=== PATIENT | male | born 1980 | race Caucasian/White ===

== ENCOUNTER 2017-11-06 09:42 | Emergency (ER) | payer SELFPAY ==
[2017-11-06 10:02] VITALS: BP 155/99
--- NOTE | 2017-11-06 10:18 | EDM.PDOC ---
ED HPI GENERAL MEDICAL PROBLEM - General Chief Complaint: Back Pain or Injury Stated Complaint: BACK PAIN Time Seen by Provider: 11/06/17 10:17 Source of Information: Reports: Patient History Limitations: Reports: No Limitations - History of Present Illness INITIAL COMMENTS - FREE TEXT/NARRATIVE: 37-year-old male presents to the ED with diffuse low back pain which he claims is bilateral. States been present off and on for the last 2-3 weeks. It is usually just a deep dull aching discomfort which is worsened with certain movements such as twisting or turning especially Repetitive movements to the left or right. States that he becomes quite sharp and stabbing. It does not radiate up or down the spine. He has no falls or recent injuries. States at times it does hurt to take a deep breath. Denies cough or sputum production. 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 Onset: Gradual Duration: Week(s): (Pain off and on for at least the last 3 weeks.) Location: Reports: Back (Mid lower back. 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 However he states the roads are very bad condition is back receives excessive jarring movement and up-and-down fashion due to the holes in the road at this time.). Denies: Activity, Exercise, Lifting, Sick Contact, Trauma Associated Symptoms: Reports: Other (Pain in the lower back can be made worse by deep breath..). Denies: Confusion, Chest Pain, Cough, cough w sputum, Diaphoresis, Fever/Chills, Headaches, Loss of Appetite, Malaise, Syncope Treatments LANGUAGE PATH: Reports: NSAIDS (Ibuprofen primarily) - Related Data Allergies Allergy/AdvReac Type Severity Reaction Status Date / Time morphine Allergy Intermediate Hives Verified 11/06/17 09:55 Home Meds: Home Meds Diclofenac Sodium [Voltaren] 50 mg PO TID #30 tab.ec 11/06/17 [Rx] Past Medical History - Past Health History Medical/Surgical History: Denies Medical/Surgical History HEENT History: Reports: Sinusitis, Other (See Below) Other HEENT History: deviated septum Cardiovascular History: Reports: None Respiratory History: Reports: None Gastrointestinal History: Reports: None Genitourinary History: Reports: None Musculoskeletal History: Reports: None Neurological History: Reports: None Psychiatric History: Reports: None Endocrine/Metabolic History: Reports: None Hematologic History: Reports: None Oncologic (Cancer) History: Reports: None Dermatologic History: Reports: None - Infectious Disease History Infectious Disease History: Reports: Chicken Pox - Past Surgical History HEENT Surgical History: Reports: Eye Surgery Respiratory Surgical History: Reports: None GI Surgical History: Reports: None Social & Family History - Family History HEENT: Reports: None Cardiac: Reports: None Endocrine/Metabolic: Reports: Diabetes, type II - Tobacco Use Smoking Status *Q: Never Smoker Second Hand Smoke Exposure: No - Caffeine Use Caffeine Use: Reports: Coffee - Recreational Drug Use Recreational Drug Use: No - Living Situation & Occupation Living situation: Reports: Single Occupation: Employed ED ROS GENERAL - Review of Systems Review Of Systems: See Below Constitutional: Denies: Fever, Chills, Malaise, Weakness, Fatigue, Decreased Appetite, Weight Loss HEENT: Reports: No Symptoms Respiratory: Reports: No Symptoms Cardiovascular: Reports: No Symptoms Endocrine: Reports: No Symptoms GI/Abdominal: Denies: Abdominal Pain, Anorexia, Black Stool, Bloody Stool, Constipation, Diarrhea, Decreased Appetite, Difficulty Swallowing, Distension, Flatus, Hematemesis, Hematochezia, Melena, Nausea, Stool Incontinence, Vomiting , Other : Reports: No Symptoms Musculoskeletal: Reports: Back Pain (See history of present illness is primarily mid low back pain from thoracic 6 to thoracic 12 on the right side versus the left.) Skin: Reports: No Symptoms Neurological: Reports: No Symptoms Psychiatric: Reports: No Symptoms ED EXAM, UPPER BACK/NECK PAIN - Physical Exam Exam: See Below Exam Limited By: No Limitations General Appearance: Alert, WD/WN, Mild Distress Eye Exam: Bilateral Eye: Normal Inspection Cardiovascular/Respiratory: Regular Rate, Rhythm, No M/R/G GI/Abdominal: Normal Bowel Sounds, Soft, Non-Tender, No Organomegaly, No Abnormal Bruit, No Mass, Pelvis Stable Back Exam: Muscle Spasm (Paraspinal muscle spasm T6-L1 on the right side. This is much worse on the left side. Pain seems to radiate along the lower 12th rib and involves the quadrigeminal muscles on the right side. He feels those this out to the posterior axillary line.), Paraspinal Tenderness. No: Vertebral Tenderness (Marked on the right side as compared to the left), Other Extremities: Normal Inspection, Normal Range of Motion, Non-Tender, No Pedal Edema Neurologic: No Motor/Sensory Deficits, Alert, Normal Mood/Affect, Oriented x 3 Psychiatric: Normal Affect, Normal Mood Skin Exam: Normal Color, Warm/Dry Course - Vital Signs Last Recorded V/S: Last Vital Signs Temp 36.2 C 11/06/17 09:57 Pulse 66 11/06/17 09:57 Resp 12 11/06/17 09:57 BP 155/99 H 11/06/17 09:57 Pulse Ox 100 11/06/17 09:57 - Orders/Labs/Meds Orders: Active Orders 24 hr Category Date Time Status Thoracic Spine 2V [CR] Stat Exams 11/06/17 10:22 Taken - Radiology Interpretation Free Text/Narrative:: 37-year-old male presents to the ED with persistent diffuse low back pain he feels is bilaterally but worse on the right side particularly along the lower right 12th rib and musculature to the right posterior axillary line. There is marked paraspinal muscle spasm from thoracic 6 to L1 on the right side. Suspect mechanical problems likely related to his work. Plan due to the prolonged nature of his pain however I'm going to have an AP lateral of his thoracic spine carried out. - Re-Assessments/Exams Free Text/Narrative Re-Assessment/Exam: 11/06/17 1112: X-rays of the thoracic spine are within normal limits showing no bony abnormalities or visualized portion of the ribs appear to be intact. Is most likely he has an underlying subtle subluxed rib either 10/11 or 12th on the right side to cause the significant muscle spasm on the side. Therefore going to advise chiropractic manipulation when he can get to 1. In the meantime I will place him on Voltaren 50 mg 3 times daily for the next 10 days to relieve pain and inflammation. Departure - Departure Time of Disposition: 11:17 Disposition: Home, Self-Care 01 Condition: Fair Clinical Impression: Repetitive strain injury of thoracic spine - Discharge Information Prescriptions: Diclofenac Sodium [Voltaren] 50 mg PO TID #30 tab.ec Instructions: Thoracic Strain, [id number] Referrals: PCP,None [Primary Care Provider] - Forms: ED Department Discharge Additional Instructions: Evaluation in the emergency room today in regards to intermittent persistent mid back pain for the last 2-3 weeks. No known injuries. Examination reveals marked paraspinal muscle spasm on the right side from thoracic 5 to lumbar 1 vertebra. There is likely an underlying rib head subluxation or partial dislocation of her rib head causing this pain. X-rays of the thoracic spine were carried out due to the chronicity of your pain but no abnormalities were identified in the thoracic spine or visualized portions of the ribs. I'm going to treat you with anti-inflammatory Voltaren 50 mg 3 times daily to relieve pain and inflammation over the next few days. However I would strongly encourage you to seek out chiropractic manipulation of her mid low back to have rib heads replaced back into normal position is a think long-term he will get better results. I would suggest follow-up with Dr. Steve Chan's office is located at [address] [place] [address] phone number to arrange an appointment is [phone]. - My Orders Last 24 Hours: My Active Orders 11/06/17 10:22 Thoracic Spine 2V [CR] Stat - Assessment/Plan Last 24 Hours: My Active Orders 11/06/17 10:22 Thoracic Spine 2V [CR] Stat
--- NOTE | 2017-11-06 18:18 | CR ---
Thoracic spine: AP, lateral and swimmer's views of the thoracic spine were obtained. Comparison: No previous study. Slight disc space narrowing is noted within the mid and upper thoracic spine. Vertebral body heights are maintained. Pedicles are intact. Minimal endplate osteophytes are seen laterally within the lower thoracic spine. Impression: 1. Minimal degenerative change. Diagnostic code #2
== END 2017-11-06 11:40 | disposition home or self-care (01) ==
LOC: JD.ED 09:42
DX: S29.012A Strain of muscle and tendon of back wall of thorax, initial encounter (principal); Z88.5 Allergy status to narcotic agent; X50.3XXA Overexertion from repetitive movements, initial encounter
CPT/HCPCS: 72070; 72070-26; 99283

== ENCOUNTER 2020-02-07 09:58 | Emergency (ER) | payer OTHER ==
[2020-02-07 10:10] VITALS: BP 146/108; PULSE 86
--- NOTE | 2020-02-07 10:23 | EDM.PDOC ---
ED HPI GENERAL MEDICAL PROBLEM - General Chief Complaint: ENT Problem Stated Complaint: DENTAL COMPLAINT Time Seen by Provider: 02/07/20 10:20 Source of Information: Reports: Patient History Limitations: Reports: No Limitations - History of Present Illness INITIAL COMMENTS - FREE TEXT/NARRATIVE: 39-year-old male presents to the ED with dental pain coming from both his upper and lower right second molar teeth. He has had previous wisdom tooth extractions. He states the teeth are badly decayed and broken off and has had an infection in the upper tooth once before. He just got insurance and is on his way to seeking dental care and management as these teeth will need to be extracted. Current pain and swelling started in the right upper second molar tooth 2 days ago. Did not sleep at all last night due to the constant throbbing pain in lancinating pain up to board his right temporal scalp suggesting neurogenic pain. No fever or chills. No significant facial swelling. Unable to eat or chew much. Has been taking Aleve and initially it did seem to help somewhat but did not help at all last night. Onset: Gradual Onset Date: 02/05/20 Duration: Day(s):, Getting Worse Location: Reports: Head ( lancinating chest and shoots up towards the right temporal scalp.), Face (Toe pain right upper second molar tooth. Pain) Quality: Reports: Ache, Sharp (Lancinating at times.), Stabbing, Throbbing Severity: Moderate Improves with: Reports: Medication (Aleve helped a little bit yesterday not today at all.) Worsens with: Reports: Other (Tempted to and also sensitive to heat and cold.) Context: Reports: Other (Has badly decayed molar teeth.). Denies: Activity, Exercise, Lifting, Sick Contact, Trauma Associated Symptoms: Reports: No Other Symptoms, Loss of Appetite, Malaise. 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: NSAIDS (Leave primarily) Right Upper Tooth/Teeth Pain Score (Numeric/FACES): 7 - Related Data Allergies Allergy/AdvReac Type Severity Reaction Status Date / Time morphine Allergy Severe Hives Verified 02/07/20 10:10 Sulfa (Sulfonamide Allergy Severe Hives Verified 02/07/20 10:10 Antibiotics) Home Meds: Home Meds Amoxicillin/Potassium Clav [Augmentin 500-125 Tablet] 1 each PO BID #20 tablet 02/07/20 [Rx] oxyCODONE HCl/Acetaminophen [Percocet 5-325 mg Tablet] 1 - 2 each PO Q4H PRN #15 tablet 02/07/20 [Rx] Past Medical History - Past Health History Medical/Surgical History: Denies Medical/Surgical History HEENT History: Reports: Sinusitis, Other (See Below) Other HEENT History: deviated septum Cardiovascular History: Reports: None Respiratory History: Reports: None Gastrointestinal History: Reports: None Genitourinary History: Reports: None Musculoskeletal History: Reports: Arthritis Neurological History: Reports: None Psychiatric History: Reports: None Endocrine/Metabolic History: Reports: Obesity/BMI 30+ Hematologic History: Reports: None Immunologic History: Reports: None Oncologic (Cancer) History: Reports: None Dermatologic History: Reports: None - Infectious Disease History Infectious Disease History: Reports: None - Past Surgical History HEENT Surgical History: Reports: Eye Surgery, Naso-Sinus Surgery Social & Family History - Family History HEENT: Reports: None Cardiac: Reports: None Endocrine/Metabolic: Reports: Diabetes, type II - Tobacco Use Smoking Status *Q: Never Smoker - Caffeine Use Caffeine Use: Reports: Coffee - Recreational Drug Use Recreational Drug Use: No - Living Situation & Occupation Living situation: Reports: Single Occupation: Employed ED ROS ENT - Review of Systems Review Of Systems: See Below Constitutional: Reports: Malaise, Fatigue, Decreased Appetite. Denies: Fever, Chills HEENT: Reports: Dental Pain (Right upper second molar tooth as well as some pain from the right lower), Ear Pain ( second molar tooth which is badly decayed as well. Is referred to his right ear), Other Respiratory: Reports: No Symptoms (And is referred up to into the right temporal scalp.) Cardiovascular: Reports: No Symptoms Endocrine: Reports: No Symptoms GI/Abdominal: Reports: Decreased Appetite : Reports: No Symptoms Musculoskeletal: Reports: No Symptoms Skin: Reports: No Symptoms Neurological: Reports: No Symptoms Psychiatric: Reports: No Symptoms Hematologic/Lymphatic: Reports: No Symptoms Immunologic: Reports: No Symptoms ED EXAM, ENT - Physical Exam Exam: See Below Exam Limited By: No Limitations General Appearance: Alert, WD/WN, Mild Distress, Other (Temperature is 36.1. Pulse ox 86% room air respiratory to 16 BP is 146 108. He is advised to keep an eye on his blood pressure. Likely elevated due to pain today. Pulse ox is 96% on room air.) Eye Exam: Bilateral Eye: Normal Inspection, PERRL Ears: Normal TMs Mouth/Throat: Dental Abcess (Patient has a dental abscess right upper second molar tooth which is very badly decayed with 75% of the tooth decayed. The surrounding gingiva is markedly swollen and erythematous without any abscess to open. He is also having some pain with the right lower second molar tooth which is badly decayed and broken off even with the gingiva margin. Both are very tender to touch with the tongue blade.), Dental Pain, Dental Tenderness (Upper and lower right second molar teeth.) Head: Atraumatic, Normocephalic, Other (No significant swelling of the face or submandibular area.) Neck: Normal Inspection, Supple, Non-Tender. No: Lymphadenopathy (L), Lymphadenopathy (R) Respiratory/Chest: No Respiratory Distress, Lungs Clear, Normal Breath Sounds, No Accessory Muscle Use, Chest Non-Tender Cardiovascular: Normal Peripheral Pulses, Regular Rate, Rhythm, No Edema, No Gallop, No Murmur, No Rub Course - Vital Signs Last Recorded V/S: Last Vital Signs Temp 36.1 C 02/07/20 10:07 Pulse 86 02/07/20 10:07 Resp 16 02/07/20 10:07 BP 146/108 H 02/07/20 10:07 Pulse Ox 96 02/07/20 10:07 - Radiology Interpretation Free Text/Narrative:: 39-year-old male presents to the ED with dental pain primarily coming from an abscess right upper both upper and lower second molar teeth are badly decayed an d currently pain is coming from an abscess of the right upper molar tooth. Treated with Augmentin 500/125 mg tablet 1 tablet twice daily for the next 10 days. Continue Aleve 2 tablets every 8 hours to reduce pain and inflammation. Percocet tabs 5/325 mg 1 or 2 every 4-6 hours as needed for pain relief. 15 tablets provided for pain relief. He will seek dental care as soon as able. His teeth will have to be removed. Departure - Departure Time of Disposition: 10:20 Disposition: Home, Self-Care 01 Condition: Fair Clinical Impression: Dental abscess - Discharge Information *PRESCRIPTION DRUG MONITORING PROGRAM REVIEWED*: Not Applicable *COPY OF PRESCRIPTION DRUG MONITORING REPORT IN PATIENT GUNJAN: Not Applicable Prescriptions: Amoxicillin/Potassium Clav [Augmentin 500-125 Tablet] 1 each PO BID #20 tablet oxyCODONE HCl/Acetaminophen [Percocet 5-325 mg Tablet] 1 - 2 each PO Q4H PRN #15 tablet PRN Reason: pain relief. Instructions: Dental Abscess, [id number] Referrals: PCP,None [Primary Care Provider] - Forms: ED Department Discharge, ED Return to Work/School Form Additional Instructions: Evaluation in the emergency room today in regards to dental pain coming from both the right lower second molar tooth which is broken off even with the gi ngiva margin but the primary infection is coming from a very badly decayed right upper second molar tooth. The surrounding gingiva are swollen. Treatment is antibiotic Augmentin 500/125 mg tablet twice daily for the next 10 days to clear up infection. This medicine unfortunately likes to cause some degree of diarrhea. Suggest yogurt once daily which will usually prevent diarrhea from occurring. Continue either Aleve 2 tablets every 8 hours or Motrin 600 mg every 6 hours to relieve pain and inflammation. Percocet tabs 5/325 mg 1 or 2 every 4-6 hours as needed for pain relief until the antibiotics become effective. Follow-up with dentist as soon as able to have the teeth extracted. Sepsis Event Note (ED) - Evaluation Sepsis Screening Result: No Definite Risk - Focused Exam Vital Signs: Vital Signs Temp Pulse Resp BP Pulse Ox 02/07/20 10:07 36.1 C 86 16 146/108 H 96
== END 2020-02-07 10:32 | disposition home or self-care (01) ==
LOC: JD.ED 09:58
DX: K04.7 Periapical abscess without sinus (principal); K02.9 Dental caries, unspecified; E66.9 Obesity, unspecified; Z68.30 Body mass index [BMI] 30.0-30.9, adult; Z88.5 Allergy status to narcotic agent; Z88.2 Allergy status to sulfonamides
CPT/HCPCS: 99282; 99283

== ENCOUNTER 2020-03-29 11:40 | Emergency (ER) | payer OTHER ==
--- NOTE | 2020-03-29 12:11 | EDM.PDOC ---
ED HPI GENERAL MEDICAL PROBLEM - General Chief Complaint: Chest Pain Stated Complaint: CHEST PAIN Time Seen by Provider: 03/29/20 12:00 Source of Information: Reports: Patient History Limitations: Reports: No Limitations - History of Present Illness INITIAL COMMENTS - FREE TEXT/NARRATIVE: 39-year-old male attends the ED complaining of diffuse left anterior chest wall pain since about 0730 hrs. this morning. He states it started shortly after he got up for the day when he was taking his daughter to school. He states it is constant and worsened by certain activities such as moving his left arm and perhaps deep breathing. No true pleuritic component to the pain. He states he has a history of heartburn but this pain does not feel burning in etiology. He has had a similar event a few years ago at a different hospital. Denies burping belching or any odynophagia. He swallowed water no problem this morning. He has not yet eaten. He is currently on no medications. He used to smoke cigarettes but quit several years ago. He has a strong family history of diabetes with his father succumbing to this illness 2 weeks ago. He believes his father may have had coronary disease and required stents but he is not sure. Apparently his grandfather does have diabetes. 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 Denies fever chills cough or sputum production. Onset: Today, Sudden Onset Date: 03/29/20 Onset Time: 07:30 Duration: Hour(s):, Constant Location: Reports: Chest (Left precordial chest.) Quality: Reports: Ache Severity: Moderate Improves with: Reports: None Worsens with: Reports: Movement Associated Symptoms: Denies: No Other Symptoms (Movements and deep breathing seem to make it a little bit worse.), Confusion, Chest Pain, Cough, cough w sputum, Diaphoresis, Fever/Chills, Headaches, Malaise, Nausea/Vomiting, Rash, Seizure, Shortness of Breath, Syncope, Weakness Treatments [employer]EL[employer]: Reports: Other (see below) (None.) Left Middle Chest Pain Score (Numeric/FACES): 6 - Related Data Allergies Allergy/AdvReac Type Severity Reaction Status Date / Time morphine Allergy Severe Hives Verified 03/29/20 11:56 Sulfa (Sulfonamide Allergy Severe Hives Verified 03/29/20 11:56 Antibiotics) Home Meds: Home Meds . [No Known Home Meds] 03/29/20 [History] Past Medical History - Past Health History Medical/Surgical History: Denies Medical/Surgical History HEENT History: Reports: Sinusitis, Other (See Below) Other HEENT History: deviated septum Cardiovascular History: Reports: None Respiratory History: Reports: None Gastrointestinal History: Reports: None Genitourinary History: Reports: None Musculoskeletal History: Reports: Arthritis Neurological History: Reports: None Psychiatric History: Reports: None Endocrine/Metabolic History: Reports: Obesity/BMI 30+ Hematologic History: Reports: None Immunologic History: Reports: None Oncologic (Cancer) History: Reports: None Dermatologic History: Reports: None - Infectious Disease History Infectious Disease History: Reports: None - Past Surgical History HEENT Surgical History: Reports: Eye Surgery, Naso-Sinus Surgery Social & Family History - Family History HEENT: Reports: None Cardiac: Reports: None Endocrine/Metabolic: Reports: Diabetes, type II - Caffeine Use Caffeine Use: Reports: Coffee - Living Situation & Occupation Living situation: Reports: Single Occupation: Employed ED ROS GENERAL - Review of Systems Review Of Systems: See Below Constitutional: Denies: Fever, Chills, Malaise, Weakness, Decreased Appetite, Weight Loss HEENT: Reports: No Symptoms Respiratory: Denies: Shortness of Breath, Wheezing, Pleuritic Chest Pain, Cough Cardiovascular: Reports: Chest Pain (See history of present illness.). Denies: Blood Pressure Problem (Although his blood pressure is elevated at the time he presented to the ED.) Endocrine: Reports: No Symptoms GI/Abdominal: Reports: Other (Prone to heartburn but he states this does not feel burning in intensity.) : Reports: No Symptoms Musculoskeletal: Reports: No Symptoms Skin: Reports: No Symptoms Neurological: Reports: No Symptoms Psychiatric: Reports: No Symptoms Hematologic/Lymphatic: Reports: No Symptoms Immunologic: Reports: No Symptoms ED EXAM, GENERAL - Physical Exam Exam: See Below Exam Limited By: No Limitations General Appearance: Alert, WD/WN, Anxious, Mild Distress, Other (Temperature is 36.6 with a heart rate of 83 and sinus respiratory to 10/min O2 sats 99% on room air BP elevated 157 106.) Eye Exam: Bilateral Eye: Normal Inspection, PERRL Neck: Normal Inspection, Supple, Non-Tender, Full Range of Motion. No: Carotid Bruit, Lymphadenopathy (L), Lymphadenopathy (R) Respiratory/Chest: No Respiratory Distress, Lungs Clear, Normal Breath Sounds, No Accessory Muscle Use, Chest Non-Tender, Other (Patient has chest wall pain well localized to the third fourth and fifth ribs in the midclavicular line on the left side. The fourth rib is much more tender than the other 2. This tenderness follows along the ribs laterally to the mid axillary line. It is worsened by moving his arm backwards when he stretches out his chest wall and pectoralis major and minor musculature.) Cardiovascular: Normal Peripheral Pulses, Regular Rate, Rhythm, No Edema, No Gallop, No Murmur, No Rub Peripheral Pulses: 3+: Carotid (L), Carotid (R), Posterior Tibial (L), Posterior Tibial (R), Dorsalis Pedis (L), Dorsalis Pedis (R) GI/Abdominal: Normal Bowel Sounds, Soft, Non-Tender, No Organomegaly, No Mass, Other Back Exam: Normal Inspection, Full Range of Motion. No: CVA Tenderness (L) Extremities: Normal Inspection, Normal Range of Motion, Non-Tender, No Pedal Edema Neurological: Alert, Oriented, CN II-XII Intact, Normal Cognition, Normal Gait Psychiatric: Normal Affect, Normal Mood, Anxious (Minimally anxious.) Skin Exam: Warm, Dry, Intact, Normal Color, No Rash EKG INTERPRETATION EKG Date: 03/29/20 Time: 11:50 Rhythm: NSR Rate (Beats/Min): 82 [place]aver[place]: LAD-Left Waverly Deviation (Minimal left axis deviation at -3 degrees.) P-Wave: Present QRS: RBBB (Patient has a right bundle branch block pattern) ST-T: Other (Baseline wander is in several leads. There is a diffuse early repolarization pattern but no signs of ischemia.) QT: Prolonged (QTC is mildly prolonged.) EKG Interpretation Comments: Abnormal ECG. Course - Vital Signs Last Recorded V/S: Last Vital Signs Temp 36.6 C 03/29/20 11:49 Pulse 83 03/29/20 11:49 Resp 10 L 03/29/20 11:49 BP 157/106 H 03/29/20 11:49 Pulse Ox 99 03/29/20 11:49 - Orders/Labs/Meds Orders: Active Orders 24 hr Category Date Time Status Dextrose 5%-0.9% NaCl [Dextrose 5%-Normal Saline] 1,000 Med 03/29/20 12:15 Active ml IV ASDIRECTED Ketorolac [Toradol] Med 03/29/20 12:15 Active 30 mg IVPUSH ONETIME Medication Orders Dextrose/Sodium Chloride (Dextrose 5%-Normal Saline) 1,000 mls @ 150 mls/hr IV ASDIRECTED ASHLEY Last Admin: 03/29/20 12:27 Dose: 150 mls/hr Documented by: MAYCOL Ketorolac Tromethamine (Toradol) 30 mg IVPUSH ONETIME ASHLEY Last Admin: 03/29/20 12:27 Dose: 30 mg Documented by: MAYCOL Labs: Laboratory Tests 03/29/20 03/29/20 03/29/20 Range/Units 11:55 11:55 11:55 WBC 7.18 (4.23-9.07) K/mm3 RBC 5.44 (4.63-6.08) M/mm3 Hgb 16.3 (13.7-17.5) gm/dl Hct 49.7 (40.1-51.0) % MCV 91.4 (79.0-92.2) fl MCH 30.0 (25.7-32.2) pg MCHC 32.8 (32.2-35.5) g/dl RDW Std Deviation 44.0 H (35.1-43.9) fL Plt Count 236 (163-337) K/mm3 MPV 10.5 (9.4-12.3) fl Neut % (Auto) 56.5 (34.0-67.9) % Lymph % (Auto) 31.9 (21.8-53.1) % Sampson % (Auto) 7.5 (5.3-12.2) % Eos % (Auto) 3.5 (0.8-7.0) Baso % (Auto) 0.3 (0.1-1.2) % Neut # (Auto) 4.06 (1.78-5.38) K/mm3 Lymph # (Auto) 2.29 (1.32-3.57) K/mm3 Sampson # (Auto) 0.54 (0.30-0.82) K/mm3 Eos # (Auto) 0.25 (0.04-0.54) K/mm3 Baso # (Auto) 0.02 (0.01-0.08) K/mm3 PT 10.7 (9.7-11.7) SECONDS INR 1.00 APTT 27 (22-31) SECONDS Sodium 141 (136-145) mEq/L Potassium 4.0 (3.5-5.1) mEq/L Chloride 103 (98-107) mEq/L Carbon Dioxide 30 (21-32) mEq/L Anion Gap 12.0 (5-15) BUN 16 (7-18) mg/dL Creatinine 0.9 (0.7-1.3) mg/dL Est Cr Clr Drug Dosing 119.75 mL/min Estimated GFR (MDRD) > 60 (>60) mL/min BUN/Creatinine Ratio 17.8 (14-18) Glucose 110 H (74-106) mg/dL Calcium 9.3 (8.5-10.1) mg/dL Magnesium 2.1 (1.8-2.4) mg/dl Total Bilirubin 0.6 (0.2-1.0) mg/dL AST 13 L (15-37) U/L ALT 27 (16-63) U/L Alkaline Phosphatase 73 (46-116) U/L CK-MB (CK-2) 1.4 (0-3.6) ng/ml Troponin I < 0.017 (0.00-0.056) ng/mL C-Reactive Protein 0.7 (<1.0) mg/dL Total Protein 7.8 (6.4-8.2) g/dl Albumin 4.3 (3.4-5.0) g/dl Globulin 3.5 gm/dL Albumin/Globulin Ratio 1.2 (1-2) Meds: Medications Generic Name Dose Route Start Last Admin Trade Name Freq PRN Reason Stop Dose Admin Dextrose/Sodium Chloride 1,000 mls @ 150 mls/hr 03/29/20 12:15 03/29/20 12:27 Dextrose 5%-Normal Saline IV 150 mls/hr ASDIRECTED ASHLEY Administration Ketorolac Tromethamine 30 mg 03/29/20 12:15 03/29/20 12:27 Toradol IVPUSH 30 mg ONETIME ASHLEY Administration - Radiology Interpretation Free Text/Narrative:: 39-year-old male presents to the ED with acute onset of left precordial chest pain this morning shortly after getting up for the day. He states it has been persistent ever since he got up. Aggravated by perhaps very deep breathing and movement certain movements of his arm. He has no known injuries to his chest wall but he does a lot of heavy lifting in the workplace a works in the [employer] department at [employer]. He denies cough or sputum production no fever or chills. Examination reveals chest wall pain well localized to the fourth rib with the third and fifth ribs being mildly tender left precordial chest particularly in the midclavicular line. This appears to be the source of his pain. Lungs sound clear. Normal sinus rhythm on the monitor. ECG is abnormal from the point of view of the right bundle branch block pattern which skews most of the leads. There is also a diffuse early repolarization pattern but no true ischemic change appreciated. Plan IV will be D5 normal saline since he is not eaten yet today. 150 mils per hour. Given Toradol 30 mg IV for pain relief. He will have a chest x-ray routine labs to include cardiac markers. - Re-Assessments/Exams Free Text/Narrative Re-Assessment/Exam: 03/29/20 14:04White count is 7.18. Differential shows 56% neutrophils on the auto differential. Hemoglobin is 16.3 with hematocrit of 49 point 0.7 suggesting some degree of hemoconcentration. Platelet counts 236,000 . PT is 10.7 with an INR of 1.0. PTT is 27. Sodium 141 with potassium 4.0. Chloride 103 with a bicarb of 30. Anion gap is 12.0. BUN is 16 with a creatinine of 0.9. GFR is greater than 60. Glucose is 110. Calcium 9.3 with a magnesium of 2.1. Liver function is normal. CK-MB fraction is 1.4 troponin I is less than 0.017. C-reactive protein is 0.7. Total protein 7.8 with an albumin fraction o f 4.3 normal. Chest x-ray done portably is essentially normal per portable technique. It suggests diffuse vascular congestion pattern but I suspect it is magnified. Cardiac silhouette is normal. 03/29/20 14:12 discussed the findings with the patient. He reports that his chest wall pain seems to be letting up some after the Toradol IV. However on examination he still remains quite tender along the fourth rib particularly laterally adjacent to the anterior axillary line. Patient had a splint placed on prednisone in the past for low back pain.He indicates that he had quite significant side effects from the medication and prefers not to use it again. Therefore I will place him on Aleve 2 tablets every 8 hours as needed for reduction of pain. He is advised that the pain in his chest likely is viral in origin will last anywhere between 10 days and 5 weeks. He was relieved to know that there is no evidence of heart related illness. Departure - Departure Time of Disposition: 14:14 Disposition: Home, Self-Care 01 Reason for Transfer *Q: Other Condition: Fair (Noncardiac chest pain) Clinical Impression: Non-cardiac chest pain, Anterior chest wall pain Instructions: Chest Wall Pain, [id number] Referrals: Mary Heath NP [Primary Care Provider] - Forms: ED Department Discharge, ED Return to Work/School Form Additional Instructions: Evaluation in the emergency room today in regards to the development of left upper anterior chest pain. Started early this morning after getting up for the day. Concern of course with whether or not this was heart related. On examination you were found to be quite tender in the distribution of ribs 3 4 and 5 in the left upper anterior chest particularly the fourth rib which is the typical rib involved and inflammation secondary to viral infections. Chest x- ray was done and is within normal limits. ECG or electrocardiogram was also within normal limits other than showing a right bundle branch block which is something you were born with. There is no signs of heart related illness on lab testing either. In fact labs are completely normal. Due to potential adverse effects of prednisone in the past it is felt that you should just take Aleve 2 tablets every 8 hours to reduce pain and inflammation for the next 3 to 4 days and then as needed if you still have chest wall pain. Off work today and a note will be given in this regard. Activity as tolerated. Diet as tolerated. Sepsis Event Note (ED) - Evaluation Sepsis Screening Result: No Definite Risk - Focused Exam Vital Signs: Vital Signs Temp Pulse Resp BP Pulse Ox 03/29/20 11:49 36.6 C 83 10 L 157/106 H 99 - My Orders Last 24 Hours: My Active Orders 03/29/20 12:15 Dextrose 5%-0.9% NaCl [Dextrose 5%-Normal Saline] 1,000 ml IV ASDIRECTED Ketorolac [Toradol] 30 mg IVPUSH ONETIME - Assessment/Plan Last 24 Hours: My Active Orders 03/29/20 12:15 Dextrose 5%-0.9% NaCl [Dextrose 5%-Normal Saline] 1,000 ml IV ASDIRECTED Ketorolac [Toradol] 30 mg IVPUSH ONETIME
[2020-03-29] MEDS ORDERED: Ketorolac 30 MG/ML SDV IVPUSH SCH (12:15)
[2020-03-29] MEDS ORDERED: Dextrose 5%-0.9% NaCl 1,000 ML IV SCH (12:15)
--- NOTE | 2020-03-29 12:49 | CR ---
Chest: Portable view of the chest was obtained. Comparison: No prior chest imaging is available. Heart size and mediastinum are normal. Lungs are clear with no acute parenchymal change. Bony structures are grossly intact. Impression: 1. Nothing acute is seen on portable chest x-ray. Diagnostic code #1 This report was dictated in MDT
[2020-03-29 14:52] VITALS: BP 127/90; PULSE 67
== END 2020-03-29 14:46 | disposition home or self-care (01) ==
LOC: JD.ED 11:40
DX: R07.89 Other chest pain (principal); E66.9 Obesity, unspecified; Z68.29 Body mass index [BMI] 29.0-29.9, adult; Z88.5 Allergy status to narcotic agent; Z88.2 Allergy status to sulfonamides
CPT/HCPCS: 36415; 71045; 80053; 82553; 83735; 84484; 85025; 85610; 85730; 86140; 96361; 96374; 99285; J1885; J7042; 93010; 99283

== ENCOUNTER 2020-06-17 08:46 | Emergency (ER) | payer OTHER ==
[2020-06-17 09:06] VITALS: BP 138/90; PULSE 72
--- NOTE | 2020-06-17 09:21 | EDM.PDOC ---
ED HPI GENERAL MEDICAL PROBLEM - General Chief Complaint: ENT Problem Stated Complaint: DENTAL COMPLAINT WITH FACIAL SWELLING Time Seen by Provider: 06/17/20 09:05 Source of Information: Reports: Patient History Limitations: Reports: No Limitations - History of Present Illness INITIAL COMMENTS - FREE TEXT/NARRATIVE: The patient presents with right upper jaw tooth pain with facial swelling. He noticed some pain last night and this morning when he woke up he had more pain an facial swelling. He has no fever or chills. He was trying to get into a dentist but he could not. Onset: Gradual Duration: Day(s): Location: Reports: Face Quality: Reports: Sharp Severity: Moderate Improves with: Reports: None Worsens with: Reports: None Associated Symptoms: Reports: No Other Symptoms Right Face/Facial Pain Score (Numeric/FACES): 4 - Related Data Allergies Allergy/AdvReac Type Severity Reaction Status Date / Time morphine Allergy Severe Hives Verified 06/17/20 09:05 Sulfa (Sulfonamide Allergy Severe Hives Verified 06/17/20 09:05 Antibiotics) Home Meds: Home Meds Hydrocodone/Acetaminophen [Hydrocodone-Acetamin 5-325 mg] 1 - 2 each PO Q6HR PRN #20 tablet 06/17/20 [Rx] Penicillin V Potassium 500 mg PO Q6HR #40 tab 06/17/20 [Rx] Past Medical History - Past Health History Medical/Surgical History: Denies Medical/Surgical History HEENT History: Reports: Sinusitis, Other (See Below) Other HEENT History: deviated septum Cardiovascular History: Reports: None Respiratory History: Reports: None Gastrointestinal History: Reports: None Other Gastrointestinal History: colitis Genitourinary History: Reports: None Musculoskeletal History: Reports: Arthritis Neurological History: Reports: None Psychiatric History: Reports: None Endocrine/Metabolic History: Reports: Obesity/BMI 30+ Hematologic History: Reports: None Immunologic History: Reports: None Oncologic (Cancer) History: Reports: None Dermatologic History: Reports: None - Infectious Disease History Infectious Disease History: Reports: None - Past Surgical History HEENT Surgical History: Reports: Eye Surgery, Naso-Sinus Surgery Social & Family History - Family History HEENT: Reports: None Cardiac: Reports: None Endocrine/Metabolic: Reports: Diabetes, type II - Tobacco Use Tobacco Use Status *Q: Never Tobacco User Second Hand Smoke Exposure: No - Caffeine Use Caffeine Use: Reports: Coffee - Recreational Drug Use Recreational Drug Use: No - Living Situation & Occupation Living situation: Reports: Single Occupation: Employed ED ROS ENT - Review of Systems Review Of Systems: See Below Constitutional: Reports: No Symptoms HEENT: Reports: Other (Right upper jaw tooth pain and facial swelling) Respiratory: Reports: No Symptoms Cardiovascular: Reports: No Symptoms Endocrine: Reports: No Symptoms GI/Abdominal: Reports: No Symptoms : Reports: No Symptoms Musculoskeletal: Reports: No Symptoms ED EXAM, ENT - Physical Exam Exam: See Below Exam Limited By: No Limitations General Appearance: Alert, No Apparent Distress Ears: Normal External Exam Nose: Normal Inspection Mouth/Throat: Other (Broken teeth in the right upper jaw line with erythema and pain upon palpation to the 2nd molar.) Course - Vital Signs Last Recorded V/S: Last Vital Signs Temp 97.5 F 06/17/20 09:01 Pulse 72 06/17/20 09:01 Resp 18 06/17/20 09:01 BP 138/90 06/17/20 09:01 Pulse Ox 96 06/17/20 09:01 Departure - Departure Time of Disposition: :20 Disposition: Home, Self-Care 01 Condition: Good Clinical Impression: Dental caries, Dental abscess, Pain, dental Fracture of tooth Qualifiers: Encounter type: initial encounter Fracture type: closed Qualified Code(s): S02.5XXA - Fracture of tooth (traumatic), initial encounter for closed fracture - Discharge Information *PRESCRIPTION DRUG MONITORING PROGRAM REVIEWED*: No *COPY OF PRESCRIPTION DRUG MONITORING REPORT IN PATIENT GUNJAN: No Prescriptions: Hydrocodone/Acetaminophen [Hydrocodone-Acetamin 5-325 mg] 1 - 2 each PO Q6HR PRN #20 tablet PRN Reason: Pain Penicillin V Potassium 500 mg PO Q6HR #40 tab Referrals: Mary Heath NP [Primary Care Provider] - Additional Instructions: Take the penVK 4 times per day until gone. Take tylenol or motrin as needed for pain. If that does not help, try they hydrocodone. Follow up with a dentist in [facility]. Please return if you are worse. Sepsis Event Note (ED) - Evaluation Sepsis Screening Result: No Definite Risk - Focused Exam Vital Signs: Vital Signs Temp Pulse Resp BP Pulse Ox 06/17/20 09:01 97.5 F 72 18 138/90 96
== END 2020-06-17 09:40 | disposition home or self-care (01) ==
LOC: JD.ED 08:46
DX: S02.5XXA Fracture of tooth (traumatic), initial encounter for closed fracture (principal); K04.7 Periapical abscess without sinus; K02.9 Dental caries, unspecified; E66.9 Obesity, unspecified; Z88.5 Allergy status to narcotic agent; Z88.2 Allergy status to sulfonamides; Z68.29 Body mass index [BMI] 29.0-29.9, adult; X58.XXXA Exposure to other specified factors, initial encounter
CPT/HCPCS: 99283

== ENCOUNTER 2020-12-01 14:38 | Emergency (ER) | payer OTHER ==
[2020-12-01 14:47] VITALS: BP 152/93; PULSE 77
--- NOTE | 2020-12-01 15:47 | EDM.PDOC ---
ED HPI GENERAL MEDICAL PROBLEM - General Chief Complaint: Chest Pain Stated Complaint: DIZZY Time Seen by Provider: 12/01/20 14:54 Source of Information: Reports: Patient, RN Notes Reviewed - History of Present Illness INITIAL COMMENTS - FREE TEXT/NARRATIVE: 40 yr old male with onset of quite severe vertigo yesterday morning upon awakening. Closed his eye for awhile and that helped. He has continued to have some vertigo today but more of a lightheaded dizziness. Mild chest pressure. States his head feels "different". Not a true or severe headache. Was a bit off balance yesterday morning, better today. Chest Pain Score (Numeric/FACES): 5 - Related Data Allergies Allergy/AdvReac Type Severity Reaction Status Date / Time morphine Allergy Severe Hives Verified 12/01/20 14:47 Sulfa (Sulfonamide Allergy Severe Hives Verified 12/01/20 14:47 Antibiotics) Home Meds: Home Meds . [No Known Home Meds] 12/01/20 [History] Past Medical History - Past Health History Medical/Surgical History: Denies Medical/Surgical History HEENT History: Reports: Sinusitis, Other (See Below) Other HEENT History: deviated septum Cardiovascular History: Reports: None Respiratory History: Reports: None Gastrointestinal History: Reports: None Other Gastrointestinal History: colitis Genitourinary History: Reports: None Musculoskeletal History: Reports: Arthritis Neurological History: Reports: None Psychiatric History: Reports: None Endocrine/Metabolic History: Reports: Obesity/BMI 30+ Hematologic History: Reports: None Immunologic History: Reports: None Oncologic (Cancer) History: Reports: None Dermatologic History: Reports: None - Infectious Disease History Infectious Disease History: Reports: None - Past Surgical History HEENT Surgical History: Reports: Eye Surgery, Naso-Sinus Surgery Respiratory Surgical History: Reports: None GI Surgical History: Reports: None Social & Family History - Family History HEENT: Reports: None Cardiac: Reports: None Endocrine/Metabolic: Reports: Diabetes, type II - Tobacco Use Tobacco Use Status *Q: Former Tobacco User Used Tobacco, but Quit: No Month/Year Tobacco Last Used: 07/1999 - Caffeine Use Caffeine Use: Reports: Coffee, Energy Drinks, Soda - Recreational Drug Use Recreational Drug Use: No - Living Situation & Occupation Living situation: Reports: Single Occupation: Employed ED ROS GENERAL - Review of Systems Review Of Systems: See Below Constitutional: Denies: Fever, Chills, Diaphoresis HEENT: Reports: Vertigo. Denies: Ear Discharge, Ear Pain, Vision Change Respiratory: Denies: Shortness of Breath, Cough Cardiovascular: Reports: Chest Pain, Lightheadedness GI/Abdominal: Denies: Abdominal Pain, Diarrhea, Nausea, Vomiting Musculoskeletal: Denies: Shoulder Pain, Arm Pain, Back Pain Skin: Reports: No Symptoms Neurological: Reports: Numbness (mild hands, abd, "moves around") ED EXAM, GENERAL - Physical Exam Exam: See Below General Appearance: Alert, No Apparent Distress Throat/Mouth: Normal Inspection Head: Atraumatic Neck: Supple Respiratory/Chest: No Respiratory Distress, Lungs Clear, Normal Breath Sounds, Chest Non-Tender Cardiovascular: Regular Rate, Rhythm GI/Abdominal: Soft, Non-Tender. No: Guarding Back Exam: No: CVA Tenderness (L), CVA Tenderness (R) Extremities: Normal Inspection. No: Pedal Edema, Leg Pain, Redness Neurological: Alert, Oriented, No Motor/Sensory Deficits Skin Exam: Warm, Dry, Normal Color #1 Interpretation EKG Date: 12/01/20 Rhythm: NSR [place]: Normal P-Wave: Present QRS: Normal ST-T: Normal Course - Vital Signs Last Recorded V/S: Last Vital Signs Temp 96.9 F 12/01/20 14:46 Pulse 77 12/01/20 14:46 Resp 20 12/01/20 14:46 BP 152/93 H 12/01/20 14:46 Pulse Ox 96 12/01/20 14:46 - Orders/Labs/Meds Labs: Laboratory Tests 12/01/20 12/01/20 Range/Units 14:55 14:55 WBC 6.77 (4.23-9.07) K/mm3 RBC 5.14 (4.63-6.08) M/mm3 Hgb 15.7 (13.7-17.5) gm/dl Hct 46.7 (40.1-51.0) % MCV 90.9 (79.0-92.2) fl MCH 30.5 (25.7-32.2) pg MCHC 33.6 (32.2-35.5) g/dl RDW Std Deviation 42.8 (35.1-43.9) fL Plt Count 231 (163-337) K/mm3 MPV 10.5 (9.4-12.3) fl Neut % (Auto) 56.4 (34.0-67.9) % Lymph % (Auto) 33.7 (21.8-53.1) % [place] % (Auto) 5.9 (5.3-12.2) % Eos % (Auto) 3.4 (0.8-7.0) Baso % (Auto) 0.3 (0.1-1.2) % Neut # (Auto) 3.82 (1.78-5.38) K/mm3 Lymph # (Auto) 2.28 (1.32-3.57) K/mm3 [place] # (Auto) 0.40 (0.30-0.82) K/mm3 Eos # (Auto) 0.23 (0.04-0.54) K/mm3 Baso # (Auto) 0.02 (0.01-0.08) K/mm3 Sodium 145 (136-145) mEq/L Potassium 4.0 (3.5-5.1) mEq/L Chloride 107 (98-107) mEq/L Carbon Dioxide 28 (21-32) mEq/L Anion Gap 14.0 (5-15) BUN 19 H (7-18) mg/dL Creatinine 1.2 (0.7-1.3) mg/dL Est Cr Clr Drug Dosing 88.92 mL/min Estimated GFR (MDRD) > 60 (>60) mL/min BUN/Creatinine Ratio 15.8 (14-18) Glucose 101 (74-106) mg/dL Calcium 8.3 L (8.5-10.1) mg/dL Total Bilirubin 0.4 (0.2-1.0) mg/dL AST 15 (15-37) U/L ALT 35 (16-63) U/L Alkaline Phosphatase 71 (46-116) U/L Troponin I < 0.017 (0.00-0.056) ng/mL Total Protein 7.3 (6.4-8.2) g/dl Albumin 3.9 (3.4-5.0) g/dl Globulin 3.4 gm/dL Albumin/Globulin Ratio 1.2 (1-2) Meds: Medications Discontinued Medications Generic Name Dose Route Start Last Admin Trade Name Freq PRN Reason Stop Dose Admin Meclizine HCl 25 mg 05/09/21 16:16 12/01/20 16:20 Meclizine 12.5 Mg Tab PO 12/01/20 16:17 25 mg ONETIME ONE Administration - Re-Assessments/Exams Free Text/Narrative Re-Assessment/Exam: 12/01/20 16:08 EKG no acute findings, trop., other labs normal. Suspect inner ear and probable component of anxiety making sx worse. Departure - Departure Time of Disposition: 16:21 Disposition: Home, Self-Care 01 Reason for Transfer *Q: Primary PCI Indicated Clinical Impression: Atypical chest pain, Vertigo Referrals: Mary Heath NP [Primary Care Provider] - Forms: ED Department Discharge, ED Return to Work/School Form Additional Instructions: Rest. Continue to move slowly and carefully as discussed. If not much better by tomorrow roller picker a medication called antivert at your pharmacy. It is available OTC but you will have to ask your pharmacist for that. Take one 25 mg tablet twice daily for the next 2 to 3 days until vertigo is completely gone. Follow up clinic as needed. Return to ED as needed if symptoms worsening in any way. Sepsis Event Note (ED) - Evaluation Sepsis Screening Result: No Definite Risk
[2020-12-01] MEDS ORDERED: Meclizine 12.5 MG Tab PO ONE (16:16)
== END 2020-12-01 16:30 | disposition home or self-care (01) ==
LOC: JD.ED 14:38
DX: R07.89 Other chest pain (principal); R42 Dizziness and giddiness; Z88.6 Allergy status to analgesic agent; Z88.2 Allergy status to sulfonamides; E66.9 Obesity, unspecified; Z87.891 Personal history of nicotine dependence; Z68.31 Body mass index [BMI] 31.0-31.9, adult
CPT/HCPCS: 36415; 80053; 84484; 85025; 93005; 99283; 99285-25; A9270-GY

== ENCOUNTER 2021-08-11 08:53 | Emergency (ER) | payer BC, OTHER ==
[2021-08-11 09:04] VITALS: BP 153/85; PULSE 80
[2021-08-11] MEDS ORDERED: Ketorolac 60 MG/2 ML SDV IM ONE (09:15)
[2021-08-11] MEDS ORDERED: Orphenadrine 100 MG Tab.ER PO STA (09:15)
== END 2021-08-11 12:24 | disposition home or self-care (01) ==
LOC: JD.ED 08:53
DX: M54.50 Low back pain, unspecified (principal); E66.9 Obesity, unspecified; Z68.35 Body mass index [BMI] 35.0-35.9, adult; Z88.5 Allergy status to narcotic agent; Z88.2 Allergy status to sulfonamides
CPT/HCPCS: 72072; 72100; 96372; 99283; A9270; J1885; 99284

== ENCOUNTER 2022-01-04 12:04 | Emergency (ER) | payer BC ==
[2022-01-04 12:55] VITALS: BP 140/105; PULSE 96
[2022-01-04] MEDS ORDERED: Sodium Chloride 0.9% 10 ML Syringe FLUSH PRN (12:56)
[2022-01-04] MEDS ORDERED: Ondansetron 4 MG/2 ML SDV IVPUSH ONE (12:58)
[2022-01-04] MEDS ORDERED: Sodium Chloride 0.9% 1,000 ML IV SCH (13:00)
[2022-01-04 13:38] LABS: ESTIMATED GFR > 60 mL/min (>60)
== END 2022-01-04 15:05 | disposition home or self-care (01) ==
LOC: JD.ED 12:04
DX: R10.30 Lower abdominal pain, unspecified (principal); R19.7 Diarrhea, unspecified; E66.9 Obesity, unspecified; Z88.5 Allergy status to narcotic agent; Z88.2 Allergy status to sulfonamides; Z20.822 Contact with and (suspected) exposure to COVID-19; Z68.34 Body mass index [BMI] 34.0-34.9, adult
CPT/HCPCS: 36415; 80053; 85025; 87635; 96361; 96374; 99284; J2405; J3490; J7030; 99283; U0002

== ENCOUNTER 2022-06-11 05:46 | Emergency (ER) | payer BC ==
[2022-06-11 06:09] VITALS: BP 146/96; PULSE 72
[2022-06-11] MEDS ORDERED: Aspirin 81 MG Tab.Chew PO ONE (06:20)
[2022-06-11] MEDS ORDERED: Sodium Chloride 0.9% 10 ML Syringe FLUSH PRN (06:20)
== END 2022-06-11 08:30 | disposition home or self-care (01) ==
LOC: JD.ED 05:46
DX: R07.89 Other chest pain (principal); I45.10 Unspecified right bundle-branch block; M19.90 Unspecified osteoarthritis, unspecified site; E66.9 Obesity, unspecified; Z68.36 Body mass index [BMI] 36.0-36.9, adult; Z88.5 Allergy status to narcotic agent; Z88.2 Allergy status to sulfonamides
CPT/HCPCS: 36415; 71045; 80053; 84484; 85025; 93005; 99285; A9270; J3490

== ENCOUNTER 2022-08-17 11:17 | Emergency (ER) | payer SELFPAY ==
[2022-08-17 12:13] LABS: CORONAVIRUS COVID-19 NAA NEGATIVE (NEGATIVE)
[2022-08-17 13:12] VITALS: BP 143/95; PULSE 81
== END 2022-08-17 12:45 | disposition home or self-care (01) ==
LOC: JD.ED 11:17
DX: J06.9 Acute upper respiratory infection, unspecified (principal); E66.9 Obesity, unspecified; Z68.36 Body mass index [BMI] 36.0-36.9, adult; Z88.6 Allergy status to analgesic agent; Z88.2 Allergy status to sulfonamides; Z20.822 Contact with and (suspected) exposure to COVID-19
CPT/HCPCS: 0241U; 36415; 71046; 80053; 85025; 99285